=== PATIENT | female | born 1950 | race Caucasian/White ===

== ENCOUNTER 2024-09-09 14:26 | Emergency (ER) | payer MEDICARE, SELFPAY ==
[2024-09-09] VITALS (20 sets, daily range): BP systolic 125–184; BP diastolic 54–79; PULSE 51–71; TEMP 36.4; O2SAT 95–100; BMI 34.7
--- NOTE | 2024-09-09 14:37 | ECG_ITS ---
The 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
--- NOTE | 2024-09-09 14:37 | XR_ITS ---
The [address] [address] Patient Name: CEDRIC GODWIN MRN: [id number] date: 1950 Sex: F Assigned Patient Location: ER Current Patient Location: ER Accession/Order Number: [id number] Exam Date: 09/09/2024 14:48 Report Date: 09/09/2024 15:03 At the request of: SETH ROSALES Procedure: XR chest 1V EXAMINATION: XR chest 1V HISTORY: syncope COMPARISON: No relevant comparison available. FINDINGS: LUNGS: No significant pulmonary parenchymal abnormalities. Medial left diaphragm herniation suspected. VASCULATURE: No increased pulmonary vasculature. PLEURA: No pneumothorax, effusion, or pleural thickening. CARDIAC: No cardiomegaly or cardiac silhouette abnormality. MEDIASTINUM: No visible mass or adenopathy. BONES: No fracture or visible bone lesion. OTHER: Negative. XR/XR chest 1V IMPRESSION: 1. No acute cardiopulmonary process. Electronically authenticated by: ANIYAH LEWIS Date: 09/09/2024 15:03
[2024-09-09 14:44] LABS: Glucometer 108 mg/dL (74-106)
--- NOTE | 2024-09-09 15:01 | ED.GENADUL1 ---
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 History of Present Illness HPI narrative: 74-year-old female was brought to the emergency room by squad after a syncopal event at the [facility] due to a fractured right ankle. She was receiving physical therapy when she became lightheaded and was lowered to the ground. Patient states this is not unusual for her. She does have near syncopal events. She sees cardiology. She denies striking her head or falling. She does feel better at this time. Blood sugar upon arrival was within normal limits. She denies any headache or chest pain shortness of breath. Boot on her right foot. Related Data Allergies Allergy/AdvReac Type Severity Reaction Status Date / Time fentanyl AdvReac Severe Vomiting Verified 09/09/24 14:45 Opioid HPI Opioid Management Most Recent Opioid Data: No Data to Display Review of Systems ROS Narrative All Systems are negative except as noted/marked.All systems reviewed and otherwise negative Exam Narrative Exam Narrative: All Systems are negative except as noted/marked.All systems reviewed and otherwise negative Nurses note and vital signs reviewed and patient is not hypoxic. General: The patient appears well and in no apparent distress. Patient is resting comfortably on cart. Skin: Warm, dry, no pallor noted. There is no rash noted. Head: Normocephalic, atraumatic Respiratory: Patient is in no distress, no accessory muscle use, lungs are clear to auscultation, no wheezing, rales or rhonchi Back: non-tender, no CVA tenderness bilaterally to percussion. GI: Normal bowel sounds, no tenderness to palpation, no masses appreciated. No rebound, guarding, or rigidity noted. Musculoskeletal: walking boot The right lower extremity. the patient has no evidence of calf tenderness, no pitting edema, symmetrical pulses noted bilaterally Neurological: A&O x4, normal speech Psychiatric: Cooperative Constitutional Vital Signs, click to edit/add: Last Vital Signs Temp 97.6 F 09/09/24 14:29 Pulse 61 09/09/24 14:29 Resp 20 09/09/24 14:29 BP 125/63 09/09/24 14:29 Pulse Ox 99 09/09/24 14:29 O2 Del Method Room Air 09/09/24 14:29 Course Vital Signs Vital signs: Vital Signs Temperature 97.6 F 09/09/24 14:29 Pulse Rate 61 09/09/24 14:29 Respiratory Rate 20 09/09/24 14:29 Blood Pressure 125/63 09/09/24 14:29 Pulse Oximetry 99 09/09/24 14:29 Oxygen Delivery Method Room Air 09/09/24 14:29 Temperature 97.6 F 09/09/24 14:29 Pulse Rate 61 09/09/24 14:29 Respiratory Rate 20 09/09/24 14:29 Blood Pressure 125/63 09/09/24 14:29 Pulse Oximetry 99 09/09/24 14:29 Oxygen Delivery Method Room Air 09/09/24 14:29 Medical Decision Making MDM Narrative Medical decision making narrative: 74-year-old female was brought to the emergency room by squad after a syncopal event at [facility] due to a fractured right ankle. She was receiving physical therapy when she became lightheaded and was lowered to the ground. Patient states this is not unusual for her. She does have near syncopal events. She sees cardiology. She denies striking her head or falling. She does feel better at this time. Blood sugar upon arrival was within normal limits. She denies any headache or chest pain shortness of breath. Boot on her right foot. Arrival to the emergency room IV was established patient was given IV fluids 1 L. She states she feels much better after the IV fluids were given. Patient was medicated with Zofran. She was also given wants to assess her blood sugar did drop to 86 while she was here. She did drink where she was and then denied the need for anything to eat. We are currently working on transportation. She has decided she does want something to eat we are working on getting her something to eat at this time. Patient is alert and oriented. CBC and BMP were reviewed troponin including second troponin were ordered and within normal limits other than a mildly low potassium was 3.1. She was medicated here with 40 mEq of potassium. Patient be discharged back to [facility]. Differential Diagnosis Differential Diagnosis: syncope, uti, headache Medical Records Medical records reviewed: Yes I reviewed the patient's medical records Lab Data Lab results reviewed: Yes I reviewed the patient's lab results Labs: Lab Results 09/09/24 09/09/24 09/09/24 Range/Units 14:36 14:58 16:34 WBC 7.6 (4.0-11.0) 10^3/uL RBC 4.09 L (4.20-5.40) 10^6/uL Hgb 12.4 (12.0-16.0) g/dL Hct 36.6 (36.0-48.0) % MCV 89.5 (81.0-99.0) fL MCH 30.3 (26.7-34.0) pg MCHC 33.9 (29.9-35.2) g/dL RDW 12.8 (11.0-15.0) % Plt Count 322 (150-450) 10^3/uL MPV 10.8 (9.5-13.5) fL Neut % (Auto) 63.9 (43.0-75.0) % Lymph % (Auto) 20.9 (20.5-60.0) % Jay % (Auto) 9.8 (1.7-12.0) % Eos % (Auto) 4.2 (0.9-7.0) % Baso % (Auto) 1.1 (0.2-2.0) % Neut # (Auto) 4.8 (1.4-6.5) 10^3/uL Lymph # (Auto) 1.6 (1.2-3.8) 10^3/uL Jay # (Auto) 0.7 (0.3-0.8) 10^3/uL Eos # (Auto) 0.3 (0.0-0.7) 10^3/uL Baso # (Auto) 0.1 (0.0-0.1) 10^3/uL Abs Immat Gran (auto) 0.01 (0.00-0.03) 10^3/uL Imm/Tot Granulo (auto) 0.1 (0.0-0.5) % PT 10.5 (9.0-11.6) sec INR 0.99 APTT 25.4 (22.3-36.2) sec Sodium 139 (136-145) mmol/L Potassium 3.1 L (3.5-5.1) mmol/L Chloride 102 (98-107) mmol/L Carbon Dioxide 28.4 (21.0-32.0) mmol/L Anion Gap 11.7 BUN 22.0 H (7.0-18.0) mg/dL Creatinine 0.90 (0.55-1.02) mg/dL Est GFR ( Amer) >60 (>=60 mL/min/1.73m^2) Est GFR (Non-Af Amer) >60 (>=60 mL/min/1.73m^2) BUN/Creatinine Ratio 24.4 Glucose 108 H (74-106) mg/dL Calcium 9.5 (8.5-10.1) mg/dL Total Bilirubin 0.8 (0.2-1.0) mg/dL AST 16 (15-37) U/L ALT 20 (14-59) U/L Alkaline Phosphatase 107 (46-116) U/L Troponin I High Sens 9.6 8.2 (4.0-51.3) pg/mL NT-Pro-B Natriuret Pep 275.0 (<=1800.0) pg/mL Total Protein 6.1 L (6.4-8.2) g/dL Albumin 2.6 L (3.4-5.0) g/dL Globulin 3.5 g/dL Albumin/Globulin Ratio 0.7 Urine Color (YELLOW) Urine Clarity (CLEAR) Urine pH (5.0-9.0) Ur Specific [place] (1.005-1.025) Urine Protein (NEG/TRACE) mg/dL Urine Glucose (UA) (NEGATIVE) mg/dL Urine Ketones (NEGATIVE) mg/dL Urine Occult Blood (NEGATIVE) Urine Nitrite (NEGATIVE) Urine Bilirubin (NEGATIVE) Urine Urobilinogen (0.2-1.0) EU/dL Ur Leukocyte Esterase (NEGATIVE) Urine RBC (0-2) #/HPF Urine WBC (NONE SEEN) #/HPF Ur Squamous Epith Cells (NONE/RARE) #/LPF Urine Crystals (None Seen) #/HPF Urine Bacteria (NONE SEEN) #/HPF Urine Casts (NONE SEEN) #/LPF Hyaline Casts Urine Mucus (NONE SEEN) Ur Culture Indicated? POC Glucose 108 H (74-106) mg/dL 09/09/24 Range/Units 16:45 WBC (4.0-11.0) 10^3/uL RBC (4.20-5.40) 10^6/uL Hgb (12.0-16.0) g/dL Hct (36.0-48.0) % MCV (81.0-99.0) fL MCH (26.7-34.0) pg MCHC (29.9-35.2) g/dL RDW (11.0-15.0) % Plt Count (150-450) 10^3/uL MPV (9.5-13.5) fL Neut % (Auto) (43.0-75.0) % Lymph % (Auto) (20.5-60.0) % Jay % (Auto) (1.7-12.0) % Eos % (Auto) (0.9-7.0) % Baso % (Auto) (0.2-2.0) % Neut # (Auto) (1.4-6.5) 10^3/uL Lymph # (Auto) (1.2-3.8) 10^3/uL Jay # (Auto) (0.3-0.8) 10^3/uL Eos # (Auto) (0.0-0.7) 10^3/uL Baso # (Auto) (0.0-0.1) 10^3/uL Abs Immat Gran (auto) (0.00-0.03) 10^3/uL Imm/Tot Granulo (auto) (0.0-0.5) % PT (9.0-11.6) sec INR APTT (22.3-36.2) sec Sodium (136-145) mmol/L Potassium (3.5-5.1) mmol/L Chloride (98-107) mmol/L Carbon Dioxide (21.0-32.0) mmol/L Anion Gap BUN (7.0-18.0) mg/dL Creatinine (0.55-1.02) mg/dL Est GFR ( Amer) (>=60 mL/min/1.73m^2) Est GFR (Non-Af Amer) (>=60 mL/min/1.73m^2) BUN/Creatinine Ratio Glucose (74-106) mg/dL Calcium (8.5-10.1) mg/dL Total Bilirubin (0.2-1.0) mg/dL AST (15-37) U/L ALT (14-59) U/L Alkaline Phosphatase (46-116) U/L Troponin I High Sens (4.0-51.3) pg/mL NT-Pro-B Natriuret Pep (<=1800.0) pg/mL Total Protein (6.4-8.2) g/dL Albumin (3.4-5.0) g/dL Globulin g/dL Albumin/Globulin Ratio Urine Color Lt. yellow (YELLOW) Urine Clarity Sl cloudy (CLEAR) Urine pH 7.0 (5.0-9.0) Ur Specific [place] 1.015 (1.005-1.025) Urine Protein Negative (NEG/TRACE) mg/dL Urine Glucose (UA) Negative (NEGATIVE) mg/dL Urine Ketones Negative (NEGATIVE) mg/dL Urine Occult Blood Trace-i (NEGATIVE) Urine Nitrite Negative (NEGATIVE) Urine Bilirubin Negative (NEGATIVE) Urine Urobilinogen 0.2 (0.2-1.0) EU/dL Ur Leukocyte Esterase Negative (NEGATIVE) Urine RBC 0-2 (0-2) #/HPF Urine WBC 0-2 A (NONE SEEN) #/HPF Ur Squamous Epith Cells Rare (NONE/RARE) #/LPF Urine Crystals None seen (None Seen) #/HPF Urine Bacteria Trace A (NONE SEEN) #/HPF Urine Casts Seen A (NONE SEEN) #/LPF Hyaline Casts Rare Urine Mucus None seen (NONE SEEN) Ur Culture Indicated? No POC Glucose (74-106) mg/dL Imaging Data Chest x-ray: Radiologist's impression: ITS Impressions Chest X-Ray 09/09/24 14:37 IMPRESSION: 1. No acute cardiopulmonary process. Electronically authenticated by: ANIYAH LEWIS Date: 09/09/2024 15:03 ECG Data Interpretation: 1429 normal sinus rhythm with a rate of 52 bpm AL interval 152 ms QRS duration [address] elevation or depression Discharge Plan Discharge Chief Complaint: Syncope Clinical Impression: Syncope, Hypokalemia Patient Disposition: Home, Self-Care Time of Disposition Decision: 17:05 Condition: Good Print Language: Moldovan Instructions: Syncope (ED) Referrals: Physician,Non-Staff, MD [Primary Care Provider] - 1 week
[2024-09-09] MEDS: 0.9 % SODIUM CHLORIDE 1,000 ML 1000 ML IV (15:02)
[2024-09-09 15:05] LABS: Basophils Absolute Auto 0.1 10^3/uL (0.0-0.1); Basophils Percent Auto 1.1 % (0.2-2.0); Eosinophils Absolute Auto 0.3 10^3/uL (0.0-0.7); Eosinophils Percent Auto 4.2 % (0.9-7.0); Hematocrit 36.6 % (36.0-48.0); Hemoglobin 12.4 g/dL (12.0-16.0); Immature Granulocytes Abs Auto 0.01 10^3/uL (0.00-0.03); Immature Granulocytes Pct Auto 0.1 % (0.0-0.5); Lymphocytes Absolute Auto 1.6 10^3/uL (1.2-3.8); Lymphocytes Percent Auto 20.9 % (20.5-60.0); Mean Corpuscular HGB Conc 33.9 g/dL (29.9-35.2); Mean Corpuscular Hemoglobin 30.3 pg (26.7-34.0); Mean Corpuscular Volume 89.5 fL (81.0-99.0); Mean Platelet Volume 10.8 fL (9.5-13.5); Monocytes Absolute Auto 0.7 10^3/uL (0.3-0.8); Monocytes Percent Auto 9.8 % (1.7-12.0); Neutrophils Absolute Auto 4.8 10^3/uL (1.4-6.5); Neutrophils Percent Auto 63.9 % (43.0-75.0); Platelet Count 322 10^3/uL (150-450); Red Blood Count 4.09 10^6/uL (4.20-5.40); Red Cell Distribution Width 12.8 % (11.0-15.0); White Blood Count 7.6 10^3/uL (4.0-11.0)
[2024-09-09 15:20] LABS: Alanine Aminotransferase 20 U/L (14-59); Albumin Globulin Ratio 0.7; Albumin Level 2.6 g/dL (3.4-5.0); Alkaline Phosphatase 107 U/L (46-116); Anion Gap 11.7; Aspartate Amino Transferase 16 U/L (15-37); BUN Creatinine Ratio 24.4; Bilirubin Total 0.8 mg/dL (0.2-1.0); Calcium 9.5 mg/dL (8.5-10.1); Carbon Dioxide 28.4 mmol/L (21.0-32.0); Chloride 102 mmol/L (98-107); Estimated GFR (African America >60 (>=60 mL/min/1.73m^2); Estimated GFR (Non-African Ame >60 (>=60 mL/min/1.73m^2); Globulin 3.5 g/dL; Glucose 108 mg/dL (74-106); Potassium 3.1 mmol/L (3.5-5.1); Sodium 139 mmol/L (136-145); Total Protein 6.1 g/dL (6.4-8.2)
[2024-09-09 15:21] LABS: INR 0.99; Partial Thromboplastin Time 25.4 sec (22.3-36.2); Prothrombin Time 10.5 sec (9.0-11.6)
[2024-09-09 15:26] LABS: Troponin I High Sensitivity 9.6 pg/mL (4.0-51.3)
[2024-09-09] MEDS: POTASSIUM CHLORIDE 10 MEQ ER TABLET 40 MEQ PO (15:54)
[2024-09-09 16:55] LABS: Bilirubin Urine NEGATIVE (NEGATIVE); Blood Urine TRACE-I (NEGATIVE); Clarity Urine SL CLOUDY (CLEAR); Color Urine LT. YELLOW (YELLOW); Glucose Urine UA NEGATIVE (NEGATIVE); Ketones Urine NEGATIVE (NEGATIVE); Leukocyte Esterase Urine NEGATIVE (NEGATIVE); Nitrite Urine NEGATIVE (NEGATIVE); Protein Urine NEGATIVE (NEG/TRACE); Specific Gravity Urine 1.015 (1.005-1.025); Urobilinogen Urine 0.2 EU/dL (0.2-1.0)
[2024-09-09 17:01] LABS: Troponin I High Sensitivity 8.2 pg/mL (4.0-51.3)
[2024-09-09 17:04] LABS: Bacteria Urine TRACE #/HPF (NONE SEEN); Cast Seen? SEEN #/LPF (NONE SEEN); Crystals Seen? None Seen #/HPF (None Seen); Hyaline Casts Urine RARE; Mucus Urine NONE SEEN (NONE SEEN); RBC Urine 0-2 #/HPF (0-2); Squamous Epithelial Cell Urine RARE #/LPF (NONE/RARE); Urine Culture Indicated NO; WBC Urine 0-2 #/HPF (NONE SEEN)
--- NOTE | 2024-09-12 09:38 | SWNOTE1 ---
JASMIN received message from Freya at [facility], they are requesting dc summary for ED, Sw faxed over for continuity of care.
== END 2024-09-09 17:47 | disposition home or self-care (01) ==
PROVIDERS: Physician Assistant; Emergency Provider Emergency Medicine
DX: R55 Syncope and collapse (principal); E87.6 Hypokalemia
CPT/HCPCS: 36415; 71045; 80053; 80307; 81001; 83880; 84484; 85025; 85610; 85730; 93005; 96360; 99285